=== PATIENT | female | born 1975 | race Caucasian/White ===

== ENCOUNTER 2016-06-17 06:46 | Emergency (ER) ==
[2016-06-17] MEDS ORDERED: SODIUM CHLORIDE 0.9% INJ ONE (07:59)
[2016-06-17] MEDS ORDERED: G.I. COCKTAIL PO ONE (07:59)
[2016-06-17] MEDS ORDERED: PEPCID IV ONE (07:59)
[2016-06-17] MEDS ORDERED: NS 1,000 ML IV ONE (08:53)
[2016-06-17] MEDS ORDERED: NS 1,000 ML ONE (08:55)
[2016-06-17 08:59] LABS: AGAP 15; ALBUMIN 4.6 g/dL (3.5-5.0); ALKALINE PHOSPHATASE 65 U/L (32-104); BUN 11 mg/dL (8-22); CALCIUM 10.2 mg/dL (8.8-10.2); CHLORIDE 98 mmol/L (98-107); CK PROFILE 50 U/L (24-173); COSMO 279; GOT 33 U/L (10-30); GPT 26 U/L (10-36); SODIUM 139 mmol/L (136-145); TCO2 26 mmol/L (25-35); TOTAL BILIRUBIN 0.46 mg/dL (0.20-1.00)
[2016-06-17 09:25] LABS: BASO% 0.3 % (0.0-0.8); EOS# 0.02 X1000 (0.0-0.7); EOS% 0.2 % (0.0-10.0); HEMATOCRIT 41.6 % (37.0-47.0); HEMOGLOBIN 14.3 g/dL (12.0-16.0); IMM GRAN# 0.02 X1000 (0.0-0.04); IMM GRAN% 0.2 % (0.0-0.5); LYMPH# 1.17 X1000 (1.2-3.4); LYMPH% 9.8 % (20.5-51.1); MCH 29.9 PG (27-31); MCHC 34.4 g/dL (33-37); MONO# 0.42 X1000 (0.11-0.59); MONO% 3.5 % (1.7-9.3); MPV 10.5 FL (7.4-10.4); PLT 331 X1000 (130-400); RBC 4.78 XMIL (4.2-5.4)
[2016-06-17] MEDS ORDERED: MORPHINE IV ONE ×2 (09:38→10:04)
[2016-06-17] MEDS ORDERED: ZOFRAN IV ONE (09:38)
[2016-06-17 09:51] LABS: URINE MICRO REVIEW NEEDED? NO; URINE SOURCE CLEAN CATCH
[2016-06-17 10:00] LABS: BILIRUBIN URINE NEGATIVE (NEGATIVE); BLOOD URINE NEGATIVE (NEGATIVE); COLOR YELLOW; GLUCOSE URINE NEGATIVE (NEGATIVE); LEUKOCYTES URINE NEGATIVE (NEGATIVE); NITRITE URINE NEGATIVE (NEGATIVE); PROTEIN URINE TRACE mg/dL (NEGATIVE); SP GRAVITY URINE 1.025; TURBIDITY URINE HAZY (CLEAR); UROBILINOGEN URINE NORMAL (NORMAL)
[2016-06-17 10:01] LABS: UR EPITHELIAL CELLS >10 /HPF (<10); URINE BACTERIA 3+ /HPF; URINE RBC <10 /HPF (<10); URINE WBC <10 /HPF (<10)
[2016-06-17 10:07] LABS: UR AMPHETAMINES QUAL NONE DETECTED (NONE DETECT); UR BARBITUATES QUAL NONE DETECTED (NONE DETECT); UR BENZODIAZEPIN QUAL NONE DETECTED (NONE DETECT); UR CANNABINOIDS QUAL NONE DETECTED (NONE DETECT); UR COCAINE QUAL NONE DETECTED (NONE DETECT); UR METHADONE QUAL NONE DETECTED (NONE DETECT); UR OPIATES QUAL NONE DETECTED (NONE DETECT); UR OXYCODONE QUAL PRESUMPTIVE POSITIVE (NONE DETECT); UR PCP QUAL NONE DETECTED (NONE DETECT)
--- NOTE | 2016-06-17 10:22 | ED EKG INTERP ---
EKG Interpretation - EKG Time of EKG reading by physician:: 06:52 EKG Read and Signed by:: Ishmael Araujo EKG Interpretation (*Must complete 3 of following elements*): Normal Rate: 61 Rhythm: NSR Attestation - Scribe Verification/Attestation Scribe:: Deann Zhu Acting as Scribe for:: Ishmael Araujo Scribe documention review:: This chart was documented by a scribe and accurately reflects the service the provider performed and the decisions made by the provider. Physician Attestation
[2016-06-17] MEDS ORDERED: MORPHINE ONE (10:34)
--- NOTE | 2016-06-17 10:34 | PROVIDER DOCUMENTATION ---
HPI-General Adult <Ishmael Araujo - Last Filed: 06/17/16 10:26> - General Source: patient - History of Present Illness -Gen Adult Nature of Presenting Problems: Pt is a 40 yof who came to the ED with a cc of epigastric pain. Pt reports she has been having epigastric pain for the past two weeks and has gotten worse over the past few days. Pt reports she has GERD and has not taken her medication in two weeks. Location of Pain/Injury: reports: abdomen Pain Radiation: reports: no radiation Quality of Pain: reports: burning Onset/Duration: reports: 1 week ago Timing: reports: still present Associated Symptoms: reports: denies symptoms Similar Symptoms Previously?: No Recently seen or treated by another doctor?: No <Deann Zhu - Last Filed: 06/17/16 11:27> - General Chief Complaint: Epigastric Pain Stated Complaint: CP,NAUSEA Time Seen by Provider: 06/17/16 07:08 Allergies/Adverse Reactions: Patient Allergies Allergy/AdvReac Type Severity Reaction Status Date / Time meloxicam [From Mobic] AdvReac Intermediate NAUSEA/VOMI Verified 06/17/16 07:58 TING morphine AdvReac ITCHING Verified 06/17/16 07:58 Home Medications: Home Medication List Medication Instructions Recorded Confirmed Last Taken Type Levothyroxine [Synthroid] 88 microgm PO DAILY 03/06/13 06/17/16 06/15/16 17:00 History Clonazepam 0.5 mg PO TID 08/07/14 06/17/16 06/16/16 20:00 History Pantoprazole [Protonix] 40 mg PO DAILY 08/07/14 06/17/16 12/13/15 History Cyanocobalamin (Vitamin B-12) 1,000 mcg IM DIRECTED 11/23/14 06/17/16 History [Vitamin B-12] Iron,Carbonyl/Vit C/Vit B12/FA 100 mg PO DAILY 11/23/14 06/17/16 06/15/16 21:00 History [Iron 100 Plus Tablet] Ondansetron [Zofran Odt] 4 mg PO Q6-8H PRN PRN #20 12/13/15 Unknown Rx tab.rapdis Amoxicillin 500 mg PO BID #28 tablet 06/17/16 Unknown Rx Clarithromycin [Biaxin] 500 mg PO BID #14 tablet 06/17/16 Unknown Rx Esomeprazole [Nexium] 20 mg PO BID #14 capsule 06/17/16 Unknown Rx Ondansetron HCl [Zofran] 4 mg PO TID PRN #10 tablet 06/17/16 Unknown Rx Review of Systems - Adult - REVIEW OF SYSTEMS - ADULT Constitutional: denies: chills, fever Eyes: reports: no symptoms reported Ears, Nose, Mouth & Throat: denies: epistaxis, loose teeth Cardiovascular: reports: no symptoms reported Respiratory: reports: no symptoms reported Gastrointestinal: reports: abdominal pain (epigastric pain). denies: diarrhea, nausea, vomiting Genitourinary: reports: no symptoms reported Musculoskeletal: reports: no symptoms reported Integumentary: reports: no symptoms reported Neurological: reports: no symptoms reported Psychiatric: reports: no symptoms reported Endocrine: reports: no symptoms reported Hematologic/Lymphatic: reports: no symptoms reported Allergic/Immunologic: reports: no symptoms reported All Other Systems: Reviewed and Negative <Deann Zhu - Last Filed: 06/17/16 11:27> Past History - Adult - PAST MEDICAL HISTORY-ADULT Gastrointestinal: reports: GERD Musculoskeletal: reports: intervertebral disc disease Psychiatric: reports: anxiety Other Conditions: reports: other (Thyroid disease: goiter and nodule on right) - PRIOR SURGERIES/PROCEDURES Surgical/Procedure History: reports: hysterectomy, other (tubal) - IMMUNIZATION STATUS Childhood Immunizations: See Nurse Assessment Flu Vaccine: See Nurse Assessment - FAMILY HISTORY Family History: reviewed, not pertinent <Ishmael Araujo - Last Filed: 06/17/16 10:26> - PAST MEDICAL HISTORY-ADULT Review of Records: reports: Old Records Reviewed, Nursing Assessment Review Major Childhood Illnesses: reports: denies history Cardiovascular: reports: denies history Respiratory: reports: denies history Gastrointestinal: reports: GERD Obstetrical/Gynecological: reports: denies history Genitourinary: reports: denies history Musculoskeletal: reports: denies history Neurological: reports: denies history Psychiatric: reports: anxiety Endocrine/Immune: reports: thyroid disorder (hypo) Other Conditions: reports: denies history - PRIOR SURGERIES/PROCEDURES Surgical/Procedure History: reports: hysterectomy - IMMUNIZATION STATUS Childhood Immunizations: See Nurse Assessment Flu Vaccine: See Nurse Assessment - FAMILY HISTORY Family History: reviewed, not pertinent <Deann Zhu - Last Filed: 06/17/16 11:27> Physical Exam-General - PHYSICAL EXAM-ADULT Initial Vital Signs Reviewed: Yes - CONSTITUTIONAL General Appearance: appears well, alert, no apparent distress - EYES Eyes: PERRL/EOMI, pink conjunctivae, fundi clear, no AV nicking - HEAD, EARS, NOSE, MOUTH & THROAT HENMT: normocephalic/atraumatic, moist mucous membranes - NECK Neck: non-tender - RESPIRATORY Respiratory: chest non-tender, lungs clear, normal breath sounds, no pleuratic chest pain, no respiratory distress, no accessory muscle use - CARDIOVASCULAR Cardiovascular: normal peripheral pulses, regular rate, rhythm, no edema, no gallop, no JVD, no murmur - GASTROINTESTINAL (ABDOMEN) Abdominal Exam: normal bowel sounds, tenderness (epigastric) - LYMPHATIC Lymphatic: no adenopathy - MUSCULOSKELETAL Back Exam: normal inspection Extremity: non-tender - SKIN Integumentary: normal color, normal turgor - NEUROLOGIC Neurologic: grossly normal - PSYCHIATRIC Psych/Mental Status: normal mood/affect, normal thought content, normal thought process, oriented x 3 <Deann Zhu - Last Filed: 06/17/16 11:27> Progress - PLAN OF CARE/RESULTS Progress/Plan/Lab Results: Vital Signs - 24 hr 06/17/16 06/17/16 06/17/16 07:02 08:54 09:48 Temperature 97.7 F Pulse Rate 72 61 65 Respiratory 22 17 20 Rate Blood Pressure 124/87 138/80 O2 Sat by Pulse 100 100 100 Oximetry 06/17/16 10:41 Temperature Pulse Rate 68 Respiratory 20 Rate Blood Pressure 141/89 O2 Sat by Pulse 99 Oximetry Orders Category Date Time Status Saline Loc NOW Care 06/17/16 08:00 Active CHEST-2 VIEWS [RAD] Stat Exams 06/17/16 09:07 Draft CBC WITH ELECTRONIC DIFF [HEME] Stat Lab 06/17/16 08:21 Completed CK PROFILE [SP CHEM] Stat Lab 06/17/16 08:21 Completed COMPREHENSIVE METABOLIC PANEL [CHEM] Stat Lab 06/17/16 08:21 Completed TROPONIN T Stat Lab 06/17/16 08:21 Completed URINALYSIS [URINALYSIS] Stat Lab 06/17/16 09:35 Completed URINE DRUG SCREEN Stat Lab 06/17/16 09:35 Completed 0.9% Sodium Chloride Inj [Ns] 1,000 ml Med 06/17/16 08:55 Discontinued .ROUTE As Directed 0.9% Sodium Chloride Inj [Ns] 1,000 ml Med 06/17/16 08:53 Discontinued IV 999 mls/hr Famotidine [Pepcid] Med 06/17/16 07:59 Discontinued 20 mg IV NOW ONE Lido/[place] Alk/Al&mg Hydrox [G.i. Cocktail] Med 06/17/16 07:59 Discontinued 30 ml PO NOW ONE Morphine Med 06/17/16 10:34 Discontinued 2 mg .ROUTE .STK-MED ONE Morphine Med 06/17/16 10:04 Discontinued 2 mg IV NOW ONE Morphine Med 06/17/16 09:38 Discontinued 4 mg IV NOW ONE Ondansetron [Zofran] Med 06/17/16 09:38 Discontinued 4 mg IV NOW ONE Sodium Chloride 0.9% Med 06/17/16 07:59 Discontinued 5 - 10 ml INJ NOW ONE EKG [EKG] Stat Ther 06/17/16 06:52 Ordered Laboratory Tests 06/17/16 06/17/16 06/17/16 08:21 08:21 08:21 WBC 12.00 H RBC 4.78 Hgb 14.3 Hct 41.6 MCV 87.0 MCH 29.9 MCHC 34.4 RDW Std Deviation 12.1 Plt Count 331 MPV 10.5 H Immature Gran % (Auto) 0.2 Neut % (Auto) 86.0 H Lymph % (Auto) 9.8 L [place] % (Auto) 3.5 Eos % (Auto) 0.2 Baso % (Auto) 0.3 Immature Gran # (Auto) 0.02 Neut # (Auto) 10.34 H Lymph # (Auto) 1.17 L [place] # (Auto) 0.42 Eos # (Auto) 0.02 Baso # (Auto) 0.03 Segmented Neutrophils Not Reportable Sodium 139 Potassium 4.0 Chloride 98 Carbon Dioxide 26 Anion Gap 15 BUN 11 Creatinine 0.7 Estimated GFR/1.73 m2 > 60 BUN/Creatinine Ratio 16 Glucose 128 H Calculated Osmolality 279 Calcium 10.2 Total Bilirubin 0.46 AST 33 H ALT 26 Alkaline Phosphatase 65 Creatine Kinase 50 Troponin T < 0.010 Total Protein 8.0 Albumin 4.6 Globulin 3.4 Albumin/Globulin Ratio 1.4 Urine Source Urine Color Urine Turbidity Urine pH Ur Specific [place] Urine Protein Ur Glucose (Stick) Ur Ketones (Stick) Urine Blood Urine Nitrite Urine Bilirubin Urobilinogen Dipstick Urine Leukocytes Urine WBC (Auto) Urine RBC (Auto) U Epithel Cells (Auto) Urine Bacteria (Auto) Urine Opiates Screen Ur Oxycodone Screen Ur Methadone, Qual Ur Barbiturates Screen Ur Phencyclidine Scrn Ur Amphetamines Screen U Benzodiazepines Scrn Urine Cocaine Screen U Cannabinoids Screen 06/17/16 06/17/16 09:35 09:35 WBC RBC Hgb Hct MCV MCH MCHC RDW Std Deviation Plt Count MPV Immature Gran % (Auto) Neut % (Auto) Lymph % (Auto) [place] % (Auto) Eos % (Auto) Baso % (Auto) Immature Gran # (Auto) Neut # (Auto) Lymph # (Auto) [place] # (Auto) Eos # (Auto) Baso # (Auto) Segmented Neutrophils Sodium Potassium Chloride Carbon Dioxide Anion Gap BUN Creatinine Estimated GFR/1.73 m2 BUN/Creatinine Ratio Glucose Calculated Osmolality Calcium Total Bilirubin AST ALT Alkaline Phosphatase Creatine Kinase Troponin T Total Protein Albumin Globulin Albumin/Globulin Ratio Urine Source CLEAN CATCH Urine Color YELLOW Urine Turbidity HAZY Urine pH 6.0 Ur Specific [place] 1.025 Urine Protein TRACE A Ur Glucose (Stick) NEGATIVE Ur Ketones (Stick) NEGATIVE Urine Blood NEGATIVE Urine Nitrite NEGATIVE Urine Bilirubin NEGATIVE Urobilinogen Dipstick NORMAL Urine Leukocytes NEGATIVE Urine WBC (Auto) <10 Urine RBC (Auto) <10 U Epithel Cells (Auto) >10 A Urine Bacteria (Auto) 3+ Urine Opiates Screen NONE DETECTED Ur Oxycodone Screen PRESUMPTIVE POSITIVE A Ur Methadone, Qual NONE DETECTED Ur Barbiturates Screen NONE DETECTED Ur Phencyclidine Scrn NONE DETECTED Ur Amphetamines Screen NONE DETECTED U Benzodiazepines Scrn NONE DETECTED Urine Cocaine Screen NONE DETECTED U Cannabinoids Screen NONE DETECTED <Deann Zhu - Last Filed: 06/17/16 11:27> Departure - Departure Time of Disposition Order: 10:26 Certified Medical Emergency: Emergent <Ishmael Araujo - Last Filed: 06/17/16 10:26> - Departure Time of Disposition Order: 11:20 Certified Medical Emergency: Emergent <Deann Zhu - Last Filed: 06/17/16 11:27> - Departure DIAGNOSIS: Epigastric abdominal pain Gastritis Qualifiers: Gastritis type: unspecified gastritis Chronicity: chronic Gastritis bleeding: without bleeding Qualified Code(s): K29.50 - Unspecified chronic gastritis without bleeding Disposition: HOME 01 Condition: Stable Additional Instructions: ED Follow Up Instructions: You have been treated by a care provider in the Emergency Department. These instructions are being provided to you so you can have an understanding of how to care for yourself upon discharge. Upon discharge from the Emergency Department, you are responsible for making arrangements for follow-up care by a physician of your choice. Take all prescribed medications as directed. Return to the Emergency Department immediately for any new or worsening symptoms. You may call the Physician Referral phone number at [phone] to obtain a list of Physicians who are taking new patients. Prescriptions: Amoxicillin 500 mg PO BID #28 tablet Clarithromycin [Biaxin] 500 mg PO BID #14 tablet Esomeprazole [Nexium] 20 mg PO BID #14 capsule Ondansetron HCl [Zofran] 4 mg PO TID PRN #10 tablet PRN Reason: Nausea Referrals: Selene Tavares CRNP [Primary Care Provider] - Forms: Return to School/Parent Work Instructions: Gastritis, Adult, [id number]-Gvns, Abdominal Pain, Adult, Easy-to- Read Attestation - Scribe Verification/Attestation Scribe:: Deann Zhu Acting as Scribe for:: Ishmael Araujo Scribe documention review:: This chart was documented by a scribe and accurately reflects the service the provider performed and the decisions made by the provider. <Deann Zhu - Last Filed: 06/17/16 11:27> Physician Attestation
[2016-06-17 10:41] VITALS: BP 141/89
--- NOTE | 2016-06-17 11:15 | Diag Imaging Result Document ---
PROCEDURE NAME: CHEST-2 VIEWS - 06/17/2016 FRONTAL AND LATERAL CHEST, TWO VIEWS: COMPARISON: Compared to 04/20/2013. FINDINGS: The lungs are well expanded. The heart is not enlarged. The vessels are not distended. No pneumonia. No pleural effusions. No free air beneath the diaphragm. IMPRESSION: No acute abnormality.
[2016-06-17 11:16] LABS: MANUAL DIFF NEEDED? NO
--- NOTE | 2016-06-18 05:52 | EKG Report ---
Test Performed on : 06/17/2016 06:52:15 AM Test Reason : CP Blood Pressure : / mmHG Vent. Rate : 061 BPM Atrial Rate : 061 BPM P-R Int : 148 ms QRS Dur : 080 ms QT Int : 422 ms P-R-T Axes : 014 066 040 degrees QTc Int : 424 ms Normal sinus rhythm. Normal ECG When compared with ECG of 20-APR-2013 07:18, (Unconfirmed) Nonspecific T wave abnormality no longer evident in Anterior leads Unconfirmed Result
== END 2016-06-17 10:50 | disposition home or self-care (01) ==
LOC: ED 06:46
DX: K29.50 Unspecified chronic gastritis without bleeding (principal); R10.13 Epigastric pain; R07.9 Chest pain, unspecified; R11.0 Nausea; R10.816 Epigastric abdominal tenderness; K21.9 Gastro-esophageal reflux disease without esophagitis; E03.9 Hypothyroidism, unspecified; F41.9 Anxiety disorder, unspecified; Z79.899 Other long term (current) drug therapy
CPT/HCPCS: 71020; 80053; 81001; 82550; 84484; 85025; 93005; G0480; J2270; J2405; J7030; 80324; 80345; 80346; 80349; 80353; 80358; 80361; 80365; 83992; S0028

== ENCOUNTER 2016-06-19 19:38 | Inpatient (IN) ==
[2016-06-19] MEDS ORDERED: LR 1,000 ML IV PRN (20:18)
[2016-06-19] MEDS ORDERED: PHENERGAN IV ONE ×2 (20:18→23:59)
[2016-06-19] MEDS ORDERED: DEMEROL IV ONE ×2 (20:19→23:59)
[2016-06-19] MEDS ORDERED: SODIUM CHLORIDE 0.9% INJ ONE ×2 (20:19→23:59)
--- NOTE | 2016-06-19 20:23 | PROVIDER DOCUMENTATION ---
HPI-Abdominal Pain/GI Problem - General Source: patient - History of Present Illness-ABD Nature of Presenting Problems: 40 year old F presents to the ED with a cc of upper ABD pain, nausea, and vomiting x3 days. Pt states that pain began in epigastric area and has now spread to upper ABD. Pt was seen at [facility] on 06/17 for the same and diagnosed with gastritis. Abdominal Pain Onset Location: reports: RUQ, LUQ, epigastric Pain Radiation: reports: no radiation Quality of Pain: reports: aching Severity in ED: reports: moderate Onset/Duration: reports: 3 days ago Timing: reports: still present Activities at Onset: reports: none Modifying Factors: improves with: nothing Associated Symptoms: reports: nausea, vomiting Bruising or Bleeding Gums?: No Similar Symptoms Previously?: Yes Recently seen or treated by another doctor?: Yes <Gris Munguia - Last Filed: 06/19/16 23:23> <Joseph Hubbard - Last Filed: 06/19/16 23:33> - General Chief Complaint: Abdominal Pain Stated Complaint: abd Time Seen by Provider: 06/19/16 20:11 Allergies/Adverse Reactions: Patient Allergies Allergy/AdvReac Type Severity Reaction Status Date / Time meloxicam [From Mobic] AdvReac Intermediate NAUSEA/VOMI Verified 06/17/16 07:58 TING morphine AdvReac ITCHING Verified 06/17/16 07:58 Home Medications: Home Medication List Medication Instructions Recorded Confirmed Last Taken Type Levothyroxine [Synthroid] 88 microgm PO DAILY 03/06/13 06/17/16 06/15/16 17:00 History Clonazepam 0.5 mg PO TID 08/07/14 06/17/16 06/16/16 20:00 History Pantoprazole [Protonix] 40 mg PO DAILY 08/07/14 06/17/16 12/13/15 History Cyanocobalamin (Vitamin B-12) 1,000 mcg IM DIRECTED 11/23/14 06/17/16 History [Vitamin B-12] Iron,Carbonyl/Vit C/Vit B12/FA 100 mg PO DAILY 11/23/14 06/17/16 06/15/16 21:00 History [Iron 100 Plus Tablet] Ondansetron [Zofran Odt] 4 mg PO Q6-8H PRN PRN #20 12/13/15 Unknown Rx tab.rapdis Amoxicillin 500 mg PO BID #28 tablet 06/17/16 Unknown Rx Clarithromycin [Biaxin] 500 mg PO BID #14 tablet 06/17/16 Unknown Rx Esomeprazole [Nexium] 20 mg PO BID #14 capsule 06/17/16 Unknown Rx Ondansetron HCl [Zofran] 4 mg PO TID PRN #10 tablet 06/17/16 Unknown Rx Review of Systems - Adult - REVIEW OF SYSTEMS - ADULT Constitutional: reports: fever. denies: chills Eyes: reports: no symptoms reported Ears, Nose, Mouth & Throat: reports: no symptoms reported Cardiovascular: denies: chest pain, palpitations Respiratory: denies: cough, shortness of breath Gastrointestinal: reports: abdominal pain, nausea, vomiting Genitourinary: denies: dysuria, hematuria Musculoskeletal: denies: muscle aches, muscle weakness Integumentary: denies: skin sores/ulcer, skin thickening Neurological: reports: no symptoms reported Psychiatric: reports: no symptoms reported Endocrine: reports: no symptoms reported Hematologic/Lymphatic: reports: no symptoms reported Allergic/Immunologic: reports: no symptoms reported All Other Systems: Reviewed and Negative <Gris Munguia - Last Filed: 06/19/16 23:23> Past History - Adult - PAST MEDICAL HISTORY-ADULT Review of Records: reports: Nursing Assessment Review, Medications Reviewed Major Childhood Illnesses: reports: denies history Cardiovascular: reports: denies history Respiratory: reports: denies history Gastrointestinal: reports: GERD Obstetrical/Gynecological: reports: denies history Genitourinary: reports: denies history Musculoskeletal: reports: denies history Neurological: reports: denies history Psychiatric: reports: anxiety Endocrine/Immune: reports: thyroid disorder (hypo) Other Conditions: reports: denies history - PRIOR SURGERIES/PROCEDURES Surgical/Procedure History: reports: hysterectomy - IMMUNIZATION STATUS Childhood Immunizations: See Nurse Assessment Flu Vaccine: See Nurse Assessment - FAMILY HISTORY Family History: reviewed, not pertinent - SOCIAL HISTORY Smoking: non-smoker Substance Use: none/never Alcohol Use Frequency: never <Gris Munguia - Last Filed: 06/19/16 23:23> Physical Exam-General - PHYSICAL EXAM-ADULT Initial Vital Signs Reviewed: Yes - CONSTITUTIONAL General Appearance: alert, mild distress - RESPIRATORY Respiratory: chest non-tender, lungs clear, normal breath sounds - CARDIOVASCULAR Cardiovascular: normal peripheral pulses, regular rate, rhythm, no edema - GASTROINTESTINAL (ABDOMEN) Abdominal Exam: normal bowel sounds, soft, tenderness (upper ABD great to RUQ) - MUSCULOSKELETAL Extremity: normal inspection, no pedal edema - SKIN Integumentary: normal color, normal turgor, warm/dry - PSYCHIATRIC Psych/Mental Status: normal mood/affect, normal thought content, normal thought process, oriented x 3 <Gris Munguia - Last Filed: 06/19/16 23:23> Progress - PLAN OF CARE/RESULTS Progress/Plan/Lab Results: plan of care: imaging, labs, medications Orders Category Date Time Status ABDOMEN/PELVIS W/CONTRAST [CT] Stat Exams 06/19/16 20:18 Taken CBC WITH DIFF [HEME] Stat Lab 06/19/16 20:35 Completed COMPREHENSIVE METABOLIC PANEL [CHEM] Stat Lab 06/19/16 20:35 Completed LIPASE [CHEM] Stat Lab 06/19/16 20:35 Completed Lactated Ringers Inj [Lr] 1,000 ml Med 06/19/16 20:18 Active IV 500 mls/hr Meperidine [Demerol] Med 06/19/16 20:19 Discontinued 50 mg IV NOW ONE Promethazine [Phenergan] Med 06/19/16 20:18 Discontinued 25 mg IV NOW ONE Sodium Chloride 0.9% Med 06/19/16 20:19 Discontinued 10 ml INJ NOW ONE Laboratory Tests 06/19/16 06/19/16 06/19/16 20:35 20:35 20:35 WBC 10.52 RBC 4.41 Hgb 13.3 Hct 38.4 MCV 87.1 MCH 30.2 MCHC 34.6 RDW Std Deviation 12.0 Plt Count 321 MPV 10.4 Immature Gran % (Auto) 0.2 Neut % (Auto) 69.2 Lymph % (Auto) 17.3 L [place] % (Auto) 9.7 H Eos % (Auto) 3.1 Baso % (Auto) 0.5 Immature Gran # (Auto) 0.02 Neut # (Auto) 7.28 H Lymph # (Auto) 1.82 Dare # (Auto) 1.02 H Eos # (Auto) 0.33 Baso # (Auto) 0.05 Sodium 138 Potassium 3.2 L Chloride 102 Carbon Dioxide 26 Anion Gap 10 BUN 9 Creatinine 0.6 Estimated GFR/1.73 m2 > 60 BUN/Creatinine Ratio 15 Glucose 117 H Calculated Osmolality 275 Calcium 9.1 Total Bilirubin 0.60 AST 25 ALT 27 Alkaline Phosphatase 71 Total Protein 6.9 Albumin 4.0 Globulin 3.0 Albumin/Globulin Ratio 1.0 Lipase 37 Vital Signs - 24 hr 06/19/16 19:40 Temperature 98 F Pulse Rate 81 Respiratory 18 Rate Blood Pressure 136/90 O2 Sat by Pulse 98 Oximetry Pt/Family given results. Pt will be admitted to Dr. Morrell-Surgery. PT/Family in agreement with plan of care. - CT/MRI 1 CT Study: Abdomen, Pelvis Impression: Abnormal CT Results: Findings of acute cholecystitis: Dr. Mathew- Real [facility] radiologist - CONSULTS/PCP/HOSPITALIST Notification #1 *Consult/PCP/Hospitalist*: Dr. Morrell- surgeon Time Discussed: 23:20 Consult Disposition: Admit (Give Zosyn.) <Gris Munguia - Last Filed: 06/19/16 23:23> Departure <Gris Munguia - Last Filed: 06/19/16 23:23> - Departure Time of Disposition Order: 23:10 Certified Medical Emergency: Emergent <Joseph Hubbard - Last Filed: 06/19/16 23:33> - Departure DIAGNOSIS: Cholecystitis, acute with cholelithiasis Qualifiers: Cholelithiasis location: gallbladder Biliary obstruction: with biliary obstruction Qualified Code(s): K80.01 - Calculus of gallbladder with acute cholecystitis with obstruction Disposition: ADMITTED INPATIENT 09 Condition: Fair Referrals: None,PCP [Primary Care Provider] - Attestation - Scribe Verification/Attestation Scribe:: Gris Munguia Acting as Scribe for:: Joseph Hubbard Scribe documention review:: This chart was documented by a scribe and accurately reflects the service the provider performed and the decisions made by the provider. <Gris Munguia - Last Filed: 06/19/16 23:23> Physician Attestation - Physician Attestation I, the provider, attest to the following statement:: Joseph Hubbard Physician documentation Attestation:: This documentation recorded by the scribe accurately reflects the service I personally performed and the decisions made by me. <Gris Munguia - Last Filed: 06/19/16 23:23>
[2016-06-19 20:39] LABS: MANUAL DIFF NEEDED? NO
[2016-06-19 20:41] LABS: BASO% 0.5 % (0.0-0.8); EOS# 0.33 X1000 (0.0-0.7); EOS% 3.1 % (0.0-10.0); HEMATOCRIT 38.4 % (37.0-47.0); HEMOGLOBIN 13.3 g/dL (12.0-16.0); IMM GRAN# 0.02 X1000 (0.0-0.04); IMM GRAN% 0.2 % (0.0-0.5); LYMPH# 1.82 X1000 (1.2-3.4); LYMPH% 17.3 % (20.5-51.1); MCH 30.2 PG (27-31); MCHC 34.6 g/dL (33-37); MCV 87.1 FL (81-99); MONO# 1.02 X1000 (0.11-0.59); MONO% 9.7 % (1.7-9.3); MPV 10.4 FL (7.4-10.4); NEUT% 69.2 % (42.2-75.2); PLT 321 X1000 (130-400); RBC 4.41 XMIL (4.2-5.4)
[2016-06-19 21:19] LABS: AGAP 10; ALKALINE PHOSPHATASE 71 U/L (32-104); BUN 9 mg/dL (8-22); CALCIUM 9.1 mg/dL (8.8-10.2); CHLORIDE 102 mmol/L (98-107); COSMO 275; GOT 25 U/L (10-30); GPT 27 U/L (10-36); POTASSIUM 3.2 mmol/L (3.5-5.1); SODIUM 138 mmol/L (136-145); TCO2 26 mmol/L (25-35); TOTAL PROTEIN 6.9 g/dL (6.3-8.3)
[2016-06-19] MEDS: ZOSYN 3.375 GM/NS 50 ML IV SCH (23:30)
[2016-06-20] MEDS: DEMEROL IV PRN ×5 (05:15→23:10)
[2016-06-20] MEDS: ZOSYN 3.375 GM/NS 50 ML IV SCH ×4 (05:26→23:10)
--- NOTE | 2016-06-20 07:12 | HISTORY AND PHYSICAL ---
CHIEF COMPLAINT: Right upper quadrant pain, nausea, vomiting. HISTORY OF PRESENT ILLNESS: This is a 40-year-old female who reports the onset of significant right upper abdominal pain on Saturday night. She sought medical attention on 06/17/2016 at [facility] and was diagnosed with Helicobacter pylori positivity and gastritis. She was discharged, but returned again last night because of the acuity of the pain. Her CT scan shows obvious acute cholecystitis with surrounding fluid. 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 She had a right thyroid lobectomy in the past by Dr. Duffy. She also has gastroesophageal reflux disease. MEDICATIONS: At home include Synthroid 88 mcg daily, Klonopin 0.5 mg t.i.d., Protonix 40 mg daily, vitamin B12 at 1000 mcg IM as needed, Iron Plus tablets 100 mg daily, Zofran as needed. She was recently given Amoxil, Biaxin, Nexium, and Zofran because of her visit on 06/17/2016. ALLERGIES: She reports an allergy to Mobic, and she reports itching from morphine, even though she has had it recently and tolerated it satisfactorily. PAST SURGICAL HISTORY: Includes a hysterectomy and the thyroid lobectomy. SOCIAL HISTORY: She does not smoke or drink alcohol. 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 FAMILY HISTORY: Noncontributory. REVIEW OF SYSTEMS: Pertinent for the right upper quadrant pain, nausea, vomiting. All other subsystems are negative. PHYSICAL EXAMINATION: VITAL SIGNS: Her temperature is 97.9 degrees, heart rate 68, respiratory rate 18, blood pressure 119/65. HEENT: She is normocephalic. NECK: No neck adenopathy. A collar incision scar is noted. LUNGS: Bilateral breath sounds are present. HEART: Regular rate and rhythm. ABDOMEN: Soft. She is tender in the right upper quadrant. EXTREMITIES: Pedal pulses are present. No peripheral edema. NEUROLOGIC: She is awake and alert. DIAGNOSTIC DATA: White count is 10,500, hemoglobin 13.3, hematocrit 38. Chemistry is unremarkable. ASSESSMENT: Acute cholecystitis. PLAN: The plan will be a laparoscopic cholecystectomy. I discussed the procedure with her, the benefits and risks. She understands and wants to proceed. We will proceed sometime today.
--- NOTE | 2016-06-20 08:22 | Diag Imaging Result Document ---
PROCEDURE NAME: ABDOMEN/PELVIS W/CONTRAST - 06/19/2016 CT OF THE ABDOMEN WITH INTRAVENOUS AND ORAL CONTRAST: FINDINGS: The visualized portion of the chest is unchanged in appearance since 05/10/2015. There is marked edema in the wall of the gallbladder, which contains sludge. The wall thickening and pericholecystic edema has worsened considerably since the previous study of 05/10/2015. Otherwise, the adrenal glands, spleen, pancreas and kidneys are stable in appearance. There is a small opacification in the uncinate process of the pancreas, which was there previously. There is no evidence of bowel obstruction or significant adenopathy. The common bile duct does not appear to be dilated or changed in appearance since 08/07/2014. CT THE PELVIS WITH INTRAVENOUS CONTRAST: FINDINGS: The appendix is not distended. There a small amount of fluid in the cul-de-sac. There are follicles in both ovaries, similar in appearance to previous studies. IMPRESSION: Acute cholecystitis.
[2016-06-20] MEDS: ZOFRAN IV PRN (08:41)
[2016-06-20] MEDS: NS 1,000 ML IV SCH ×3 (08:41→23:43)
[2016-06-20] MEDS: KLONOPIN PO SCH ×4 (11:57→22:11)
[2016-06-20] MEDS: SYNTHROID PO SCH (12:47)
[2016-06-20] MEDS: PROTONIX PO SCH (12:47)
[2016-06-20] MEDS ORDERED: MARCAINE 0.25% PF/EPI 1:200,000 ONE (14:59)
[2016-06-20] MEDS ORDERED: SODIUM CHLORIDE 0.9% ONE (15:00)
[2016-06-20] MEDS ORDERED: LR 1,000 ML ONE ×2 (15:00→17:09)
[2016-06-20] MEDS: DILAUDID ONE ×4 (16:28→16:43)
--- NOTE | 2016-06-20 16:35 | OPERATIVE NOTE ---
PROCEDURE DATE: 06/20/2016 NAME OF PROCEDURE: Laparoscopic cholecystectomy with operative cholangiogram. SURGEON: Allan Morrell MD. HEATER WORKER: Maggie. PREOPERATIVE DIAGNOSIS: Acute cholecystitis. POSTOPERATIVE DIAGNOSIS: Acute and chronic cholecystitis. FINDINGS: The cholangiogram revealed a normal size common duct, free flow in the duodenum. No intraluminal filling defects were seen. DESCRIPTION OF PROCEDURE: After satisfactory general endotracheal anesthesia achieved, the abdomen was prepped and draped in a sterile fashion. I anesthetized the skin at each trocar site. Began at the base of the umbilicus, made a vertical incision, dissected down to the fascia, scored the fascia, introduced the 11 trocar Optiview technique into the abdominal cavity. Under direct visualization introduced a 5 trocar in the midclavicular line, 5 trocar near the anterior axillary line, 11 mm trocar in the midepigastrium. We placed the patient in reverse Trendelenburg and turned her to the left. We aspirated the gallbladder because it was thick-walled in nature and its distention. We then grasped the fundus of the gallbladder with a ratcheted Allis grasper and reflected it cephalad. We grasped the infundibulum with the bulldog. We then began dissection of the triangle of Calot, identified the cystic duct, clipped near its junction with the gallbladder. We incised the cystic duct and introduced a [place] catheter, shot the cholangiogram. The findings above were noted. We removed the cholangiogram catheter, clipped the cystic duct on the opposite side of cystic ductotomy x2 and transected it. The cystic artery was clipped proximally x2, distally x1, and divided. We then used the cautery spatula to dissect the gallbladder away from the liver. After complete separation of gallbladder from liver, we changed the videolaparoscope to the mid epigastric trocar, introduced an EndoCatch, placed the gallbladder within the bag and delivered it to the umbilical trocar site. We enlarged the fascial incision until we could deliver the gallbladder out of the abdominal cavity. We looked back. We irrigated, aspirated. Hemostasis appeared satisfactory. We then desufflated, removed our trocars. We closed the fascia at the umbilicus with 2-0 Polysorb [id number] stitch x3. We placed a 2-0 Polysorb fascial stitch in the epigastrium as well. We then closed the skin at each incision with 4-0 Polysorb subcuticular stitches. Sterile OpSites were applied. She tolerated it well, was sent to the recovery room in satisfactory condition.
[2016-06-20] MEDS ORDERED: PHENERGAN ONE (16:48)
[2016-06-20] MEDS ORDERED: ZOFRAN ONE (17:09)
[2016-06-20] MEDS ORDERED: NEOSTIGMINE ONE (17:09)
[2016-06-20] MEDS ORDERED: ROBINUL ONE (17:09)
[2016-06-20] MEDS ORDERED: NORCURON ONE (17:09)
[2016-06-20] MEDS ORDERED: QUELICIN (DOSE) ONE (17:09)
--- NOTE | 2016-06-20 17:38 | Diag Imaging Result Document ---
PROCEDURE NAME: OPERATIVE CHOLANGIOGRAM - 06/20/2016 INTRAOPERATIVE CHOLANGIOGRAM: COMPARISON: CT abdomen and pelvis, 06/19/2016. FINDINGS: The exam was performed by the patient's surgeon. Contrast was infused into the cystic duct. This outlines a grossly normal common bile duct. There is good passage of contrast into the duodenum. IMPRESSION: No evidence of complication.
[2016-06-20] MEDS ORDERED: PNEUMOVAX 23 IM ONE (20:30)
[2016-06-20] MEDS: PERIDEX MT SCH (22:09)
[2016-06-21] MEDS: ZOSYN 3.375 GM/NS 50 ML IV SCH ×3 (04:46→16:43)
[2016-06-21] MEDS: DEMEROL IV PRN ×6 (04:47→21:56)
[2016-06-21] MEDS: ZOFRAN IV PRN (04:55)
[2016-06-21] MEDS: NS 1,000 ML IV SCH ×2 (06:14→12:00)
[2016-06-21] MEDS: PERIDEX MT SCH ×2 (08:35→21:55)
[2016-06-21] MEDS: SYNTHROID PO SCH (08:35)
[2016-06-21] MEDS: PROTONIX PO SCH (08:35)
[2016-06-21] MEDS: KLONOPIN PO SCH ×3 (08:36→16:43)
[2016-06-22] MEDS: ZOSYN 3.375 GM/NS 50 ML IV SCH ×2 (00:23→05:03)
[2016-06-22] MEDS: NS 1,000 ML IV SCH (00:24)
[2016-06-22] MEDS: DEMEROL IV PRN ×2 (02:25→07:28)
[2016-06-22] MEDS ORDERED: TYLENOL PO PRN (04:43)
[2016-06-22 07:52] VITALS: BP 105/61
[2016-06-22] MEDS: PROTONIX PO SCH (08:25)
[2016-06-22] MEDS: SYNTHROID PO SCH (08:25)
[2016-06-22] MEDS: PERIDEX MT SCH (08:25)
[2016-06-22] MEDS: KLONOPIN PO SCH (08:25)
== END 2016-06-22 10:33 | disposition home or self-care (01) | DRG 419 ==
LOC: P.ED 19:38 → OBSVTOIN 06-20 02:18 → P.EDIPHOLD 06-20 02:18 → 4N 06-20 08:39
PROVIDERS: ADMIT Surgery; ATTEND Surgery
PROC: BF101ZZ Fluoroscopy of Bile Ducts using Low Osmolar Contrast (ICD-10-PCS; 2016-06-20)
PROC: 0FT44ZZ Resection of Gallbladder, Percutaneous Endoscopic Approach (ICD-10-PCS; principal; 2016-06-20 15:12)
DX: K81.0 Acute cholecystitis (principal); E03.9 Hypothyroidism, unspecified; K81.1 Chronic cholecystitis; K21.9 Gastro-esophageal reflux disease without esophagitis; Z79.899 Other long term (current) drug therapy; Z23 Encounter for immunization
CPT/HCPCS: 74177; 74300; 80053; 83690; 85025; 88304; 90732; 94761; 94799; 96361; 96374; 96375; 96376; J0330; J1170; J2175; J2405; J2543; J2550; J7030; J7120; Q9966; Q9967; J2710

== ENCOUNTER 2016-06-24 15:58 | Emergency (ER) ==
[2016-06-24 16:12] VITALS: BP 111/67
== END 2016-06-24 18:56 | disposition left against medical advice (07) ==
LOC: P.ED 15:58
DX: S00.522A Blister (nonthermal) of oral cavity, initial encounter (principal); R22.0 Localized swelling, mass and lump, head; Z98.890 Other specified postprocedural states